=== PATIENT | male | born 1995 | race Caucasian/White ===

== ENCOUNTER 2020-06-09 17:38 | Emergency (ER) | payer OTHER ==
[~2020-06-09] VITALS: Ht 180.3 cm; Wt 107.6 kg
[2020-06-09] MEDS ORDERED: NORCO, ANEXSIA 5/325MG TABLET (HYDROcodone/ACETAMINOPHEN) PO ONE (18:30)
[2020-06-09 19:21] VITALS: BP 143/93
--- NOTE | 2020-06-10 04:44 | REP ---
ELBOW: REASON: Trauma. FINDINGS: There is no acute fracture, dislocation, subluxation, or joint effusion. There is medial soft tissue swelling. Electronically Signed by Eitan Gardiner DO 06/10/2020 11:37 A
== END 2020-06-09 19:23 | disposition home or self-care (01) ==
LOC: M ED 17:38
DX: S50.01XA Contusion of right elbow, initial encounter (principal); W19.XXXA Unspecified fall, initial encounter; Y92.009 Unspecified place in unspecified non-institutional (private) residence as the place of occurrence of the external cause; Y93.9 Activity, unspecified; Y99.8 Other external cause status